=== PATIENT | male | born 1995 ===

== ENCOUNTER 2017-03-25 19:35 | Emergency (ER) | payer MEDICAID, OTHER ==
[2017-03-25 19:59] VITALS: BP 150/99; PULSE 68; RESP 16; TEMP 98.2; O2SAT 99
--- NOTE | 2017-03-25 21:47 | ED PDOC ---
HPI: General Adult Time Seen by Provider: 03/25/17 20:21 Chief Complaint (Nursing): Abdominal Pain Chief Complaint (Provider): Evaluation for possible cyst History Per: Patient History/Exam Limitations: no limitations Additional Complaint(s): Melchor Brink is a 21 y/o male presenting to the ER on 03/25/2017 for concerns of possible cyst movement. Patient states he was here about six months ago with cyst on the left side of his abdomen. He went to his PMD and had the cyst popped , which drained and completely resolved on its own. Patient is concerned today for possible cyst travel into his abdomen. He denies any abdominal pain, vomiting, fever, or any other symptoms at this time. Patient is allergic to penicillin. Past Medical History Reviewed: Historical Data, Nursing Documentation, Vital Signs Vital Signs: Last Vital Signs Temp 98.2 F 03/25/17 19:57 Pulse 68 03/25/17 19:57 Resp 16 03/25/17 19:57 BP 150/99 H 03/25/17 19:57 Pulse Ox 99 03/25/17 21:50 - Medical History PMH: Asthma - Surgical History Surgical History: No Surg Hx - Family History Family History: States: Unknown Family Hx - Social History Current smoker - smoking cessation education provided: No Alcohol: None Drugs: Denies - Immunization History Hx Tetanus Toxoid Vaccination: No Hx Influenza Vaccination: No Hx Pneumococcal Vaccination: No - Home Medications Home Medications: Ambulatory Orders Medication Instructions Recorded Sulfamethoxazole/Trimethoprim 1 tab PO BID #10 tab 02/07/17 [Bactrim DS 800 mg-160 mg] - Allergies Allergies/Adverse Reactions: Allergies Allergy/AdvReac Type Severity Reaction Status Date / Time Penicillins Allergy RASH Verified 03/25/17 19:57 Review of Systems ROS Statement: Except As Marked, All Systems Reviewed And Found Negative Constitutional: Negative for: Fever Gastrointestinal: Negative for: Vomiting, Abdominal Pain Physical Exam - Reviewed Nursing Documentation Reviewed: Yes Vital Signs Reviewed: Yes - Physical Exam Appears: Positive for: Non-toxic, No Acute Distress Head Exam: Positive for: ATRAUMATIC, NORMOCEPHALIC Skin: Positive for: Normal Color. Negative for: Rash Eye Exam: Positive for: Normal appearance, EOMI, PERRL Neck: Positive for: Normal, Painless ROM, Supple Cardiovascular/Chest: Positive for: Regular Rate, Rhythm. Negative for: Murmur Respiratory: Positive for: Normal Breath Sounds. Negative for: Wheezing, Respiratory Distress Gastrointestinal/Abdominal: Positive for: Normal Exam, Soft. Negative for: Tenderness, Mass, Distended, Guarding, Rebound Extremity: Positive for: Normal ROM. Negative for: Deformity, Swelling Neurologic/Psych: Positive for: Alert, Oriented. Negative for: Motor/Sensory Deficits - ECG O2 Sat by Pulse Oximetry: 99 Medical Decision Making Medical Decision Makin:21 Initial Impression- Medical evaluation Pt shows benign abdomen upon physical examination with no evidence of swelling, tenderness, cellulitis, abscess, or cyst. Patient will be referred to outpatient center, surgery clinic, and was advised to schedule follow-ups this week. Documented by Jackie Prakash, acting as a scribe for Michel Burr MD. All medical record entries made by the Scribe were at my direction and personally dictated by me. I have reviewed the chart and agree that the record accurately reflects my personal performance of the history, physical exam, medical decision making, and the department course for this patient. I have also personally directed, reviewed, and agree with the discharge instructions and disposition. Disposition - Clinical Impression Clinical Impression: Abdominal discomfort - Patient ED Disposition Is Patient to be Admitted: No Counseled Patient/Family Regarding: Studies Performed, Diagnosis, Need For Followup - Disposition Referrals: [facility] [Outside] [facility] [Outside] Evan Rivas MD [Staff Provider] - Disposition: Routine/Home Disposition Time: 21:00 Condition: IMPROVED Additional Instructions: follow up with the clinic as instructed return to the ED with any worsening or concerning symptoms. Instructions: Abdominal Pain (ED)
== END 2017-03-25 21:03 | disposition home or self-care (01) ==
LOC: H.ER 19:35
DX: R10.9 Unspecified abdominal pain (principal); Z88.0 Allergy status to penicillin